=== PATIENT | female | born 1935 | race Caucasian/White ===

== ENCOUNTER 2020-08-20 13:13 | Emergency (ER) | payer MEDICARE, OTHER ==
[2020-08-20 14:52] LABS: HEMOGLOBIN 11.9 gm/dl (12.3-15.3); RED BLOOD COUNT 4.33 M/UL (4.00-5.10); WHITE BLOOD COUNT 9.8 K/UL (4.5-11.0)
[2020-08-20 15:21] LABS: BUN/CREATININE RATIO 17 (0-10)
[2020-08-20] MEDS ORDERED: ZOFRAN ODT 4 MG4 MG PO (19:01)
== END 2020-08-20 19:29 | disposition home or self-care (01) ==
LOC: ER1 13:13
PROVIDERS: Emergency Medicine
DX: K80.50 Calculus of bile duct without cholangitis or cholecystitis without obstruction (principal); J44.9 Chronic obstructive pulmonary disease, unspecified; I10 Essential (primary) hypertension; Z20.822 Contact with and (suspected) exposure to COVID-19
CPT/HCPCS: 71045; 76705; 80053; 82550; 82553; 83605; 83690; 84484; 85025; 99284; Q9967; U0002

== ENCOUNTER 2020-08-26 09:17 | Inpatient (IN) | payer MEDICARE, OTHER ==
[~2020-08-26] VITALS: Ht 157.5 cm; Wt 54.0 kg
[~2020-08-26 09:17] MED LIST: ZOFRAN ODT 4 MG4 MG PO
[2020-08-26] MEDS ORDERED: ZOLOFT100 MG PO (09:57)
[2020-08-26] MEDS ORDERED: COMBIVENT RESPIM4 GM INH (09:58)
[2020-08-26] MEDS ORDERED: DITROPAN XL5 MG PO (09:58)
[2020-08-26] MEDS ORDERED: ELIQUIS2.5 MG PO (09:59)
[2020-08-26] MEDS ORDERED: KLONOPIN0.5 MG PO (09:59)
[2020-08-26] MEDS ORDERED: PROTONIX 40 MG40 M1 PO (09:59)
[2020-08-26] MEDS ORDERED: TOPROL XL 25 MG25 MG PO (10:00)
[2020-08-26] MEDS ORDERED: AMLODIPINE BESYL5 MG PO (10:00)
[2020-08-26] MEDS ORDERED: OXYCODONE-ACET1 EACH PO (10:01)
[2020-08-26 11:08] LABS: RED BLOOD COUNT 4.75 M/UL (4.00-5.10); WHITE BLOOD COUNT 9.8 K/UL (4.5-11.0)
[2020-08-26 11:17] LABS: BUN/CREATININE RATIO 18 (0-10)
[2020-08-26] MEDS ORDERED: IPRAT-ALBUT 0.5-3 ML INH (15:16)
--- NOTE | 2020-08-26 23:09 | NUR ---
PATIENT AWAKE ATTEMPTING TO REACH FOR ETT. REASSSURANCE GIVEN . DIPRIVAN TITRATED FOR SEDATION
--- NOTE | 2020-08-27 03:46 | NUR ---
PATIENT AWAKE. NO S/S DISTRESS OR DISCOMFORT. DIPVIVAN @ 30MC[facility] . VITAL SIGNS FOLLOWS : BP 95/62 ( 69 ) M.A.P. , HR 78 ,RR 12 ,SATS 100 % NO ATTEMPT TO PULL ETT TUBE AT THIS TIME. RESTING QUIETLY.
[2020-08-27 04:47] LABS: HEMOGLOBIN 12.7 gm/dl (12.3-15.3); RED BLOOD COUNT 4.8 M/UL (4.00-5.10)
[2020-08-27 04:48] LABS: WHITE BLOOD COUNT 13.4 K/UL (4.5-11.0)
[2020-08-27 05:09] LABS: BUN/CREATININE RATIO 21 (0-10)
[2020-08-28 05:52] LABS: BUN/CREATININE RATIO 29 (0-10)
[2020-08-29 03:03] LABS: HEMOGLOBIN 12.4 gm/dl (12.3-15.3); RED BLOOD COUNT 4.46 M/UL (4.00-5.10); WHITE BLOOD COUNT 10.3 K/UL (4.5-11.0)
[2020-08-29 03:28] LABS: BUN/CREATININE RATIO 32 (0-10)
[2020-08-29] MEDS ORDERED: OXYCODONE-ACET1 EACH PO (15:41)
[2020-08-29] MEDS ORDERED: KLONOPIN0.5 MG PO (15:41)
[2020-08-29] MEDS ORDERED: PROTONIX 40 MG40 M1 PO (15:41)
[2020-08-29] MEDS ORDERED: NYSTOP60 GM TOP (15:41)
[2020-09-03] MEDS ORDERED: LEVOFLOXACIN500 MG PO (09:41)
== END 2020-09-03 15:04 | DRG 208 ==
LOC: OR 09:17 → PROG CARE 14:10 → CCU 14:10 → MED SURG 4 14:10 → PROG CARE 08-28 18:15 → MED SURG 4 09-03 04:32
PROVIDERS: Internal Medicine; Internal Medicine Gastroenterology; Physician Assistant; ADMIT Internal Medicine
PROC: 0DC58ZZ Extirpation of Matter from Esophagus, Via Natural or Artificial Opening Endoscopic (ICD-10-PCS; 2020-08-26)
PROC: 0DC68ZZ Extirpation of Matter from Stomach, Via Natural or Artificial Opening Endoscopic (ICD-10-PCS; 2020-08-26)
PROC: 0BH17EZ Insertion of Endotracheal Airway into Trachea, Via Natural or Artificial Opening (ICD-10-PCS; principal; 2020-08-26 09:00)
PROC: 5A1945Z Respiratory Ventilation, 24-96 Consecutive Hours (ICD-10-PCS; principal; 2020-08-26 09:00)
DX: J69.0 Pneumonitis due to inhalation of food and vomit (principal); J96.21 Acute and chronic respiratory failure with hypoxia; J93.83 Other pneumothorax; J90 Pleural effusion, not elsewhere classified; Z99.11 Dependence on respirator [ventilator] status; J44.0 Chronic obstructive pulmonary disease with (acute) lower respiratory infection; K56.49 Other impaction of intestine; Z20.822 Contact with and (suspected) exposure to COVID-19; R13.10 Dysphagia, unspecified; K80.50 Calculus of bile duct without cholangitis or cholecystitis without obstruction; F03.90 Unspecified dementia, unspecified severity, without behavioral disturbance, psychotic disturbance, mood disturbance, and anxiety; I48.0 Paroxysmal atrial fibrillation; Z96.643 Presence of artificial hip joint, bilateral; J44.9 Chronic obstructive pulmonary disease, unspecified; I10 Essential (primary) hypertension; F41.9 Anxiety disorder, unspecified; I95.9 Hypotension, unspecified; F32.9 Major depressive disorder, single episode, unspecified; Z79.01 Long term (current) use of anticoagulants; Z87.01 Personal history of pneumonia (recurrent); Z87.891 Personal history of nicotine dependence
CPT/HCPCS: 36415; 36600; 71045; 74018; 74230; 74330; 80048; 80053; 80076; 80202; 82150; 82803; 83690; 84132; 85025; 85027; 85610; 87070; 87205; 92526; 92610; 92611-GN; 94002; 94003; 94640; 94760; C1769; C2617; J0295; J0330; J1100; J2405; J2543; J2704; J2765; J3010; J3370; J7030; J7040; J7050; J7070; J7120; P9045; Q9962; U0002